=== PATIENT | male | born 1980 | race Caucasian/White ===

== ENCOUNTER 2020-12-11 16:55 | Day surgery (SDCO) | payer MEDICARE, OTHER ==
[~2020-12-11] VITALS: Ht 165.1 cm; Wt 148.1 kg
[2020-12-11 17:44] LABS: BASOPHIL 0.4 % (0-2); EOSINOPHIL 3.2 % (0-5); HCT 37.6 % (42.0-52.0); HGB 12.4 g/dl (13.2-18.0); LYMPHOCYTE 20.2 % (15-48); MCH 29.5 pg (25.0-31.0); MCV 89.3 fL (78.0-100.0); MONOCYTE 5.6 % (0-12); MPV 9.3 fL (6.0-9.5); NEUTROPHIL 70.1 % (41-80); NRBC 0; PLT 327 K/uL (150-400); RBC 4.21 M/uL (4.70-6.00); RDW 13.7 % (11.5-14.0)
[2020-12-11 17:50] LABS: ALBUMIN 3.1 g/dL (3.4-5.0); BILIRUBIN - TOTAL 0.3 mg/dL (0.2-1.0); CREATININE 0.72 mg/dL (0.67-1.17); GLOBULIN (CALCULATION) 4.9 g/dL; POTASSIUM 4.1 mmol/L (3.5-5.1)
[2020-12-11 23:17] LABS: MAGNESIUM 1.6 mg/dL (1.8-2.4); PHOSPHORUS 4.4 mg/dL (2.6-4.7)
[2020-12-11] MEDS ORDERED: PEPCID AC20 MG PO (23:48)
[2020-12-11] MEDS ORDERED: LASIX20 MG PO (23:49)
[2020-12-11] MEDS ORDERED: NORCO 5-325 TA1 EACH PO (23:49)
[2020-12-11] MEDS ORDERED: ZIPRASIDONE HCL20 MG PO (23:50)
[2020-12-11] MEDS ORDERED: FLOMAX0.4 MG PO (23:51)
[2020-12-11] MEDS ORDERED: PRILOSEC20 MG PO (23:51)
[2020-12-11] MEDS ORDERED: CARAFATE1 GM PO (23:52)
[2020-12-11] MEDS ORDERED: ATORVASTATIN CA10 MG PO (23:53)
[2020-12-11] MEDS ORDERED: VITAMIN D350 MC5 PO (23:53)
[2020-12-11] MEDS ORDERED: CYMBALTA 30MG C30 MG PO (23:54)
[2020-12-11] MEDS ORDERED: COREG12.5 MG PO (23:54)
[2020-12-11] MEDS ORDERED: FEOSOL325 MG PO (23:54)
[2020-12-11] MEDS ORDERED: PRINIVIL10 MG PO (23:57)
[2020-12-11] MEDS ORDERED: HYDROXYZINE HCL50 MG PO (23:57)
[2020-12-11] MEDS ORDERED: GLUCOPHAGE850 MG PO (23:58)
[2020-12-11] MEDS ORDERED: REMERON15 MG PO (23:58)
[2020-12-11] MEDS ORDERED: MELATONIN5 M2 PO (23:58)
[2020-12-12 06:09] LABS: BASOPHIL 0.4 % (0-2); EOSINOPHIL 3.1 % (0-5); HCT 37.6 % (42.0-52.0); HGB 12.2 g/dl (13.2-18.0); LYMPHOCYTE 23.6 % (15-48); MCH 28.9 pg (25.0-31.0); MCHC 32.4 g/dL (32.0-36.0); MCV 89.1 fL (78.0-100.0); MONOCYTE 6.2 % (0-12); MPV 9.1 fL (6.0-9.5); NEUTROPHIL 66.3 % (41-80); NRBC 0; PLT 317 K/uL (150-400); RBC 4.22 M/uL (4.70-6.00); WBC 10.7 K/uL (4.0-10.5)
[2020-12-12 07:06] LABS: CREATININE 0.76 mg/dL (0.67-1.17)
[2020-12-12 07:07] LABS: ALBUMIN 3.3 g/dL (3.4-5.0); BILIRUBIN - TOTAL 0.4 mg/dL (0.2-1.0); GLOBULIN (CALCULATION) 4.3 g/dL; POTASSIUM 4.1 mmol/L (3.5-5.1); TOTAL PROTEIN 7.6 g/dL (6.4-8.2)
[2020-12-12 07:13] LABS: CKMB 1.6 ng/mL (0.0-3.6)
--- NOTE | 2020-12-12 09:30 | NUR ---
RECIEVED PHONE CALL FROM SARAH RN CONTROL VALVE TECHNICIAN AT [facility]. PATIENT ATTENDS DAY CENTER MON-SAT FROM 7AM-2PM. STATES PATIENT LIVES INDEPENDENTLY AT AN APPARTMENT (NOT ASSISTED LIVING) AND HAS CARE ATTENDENTS IN THE EVENINGS. HE IS TRANSPORTED BY [facility], DOES NOT DRIVE, BUT STATES THAT SINCE HE IS IN [place] WE WILL NEED TO FIND HIM TRANSPORTATION BACK TO [facility] ON DISCHARGE. HIS MOTHER IS ALSO UNABLE TO TRANSPORT HIM. SARAH ALSO STATED THAT HE IS FREQUENTLY IN THE HOSPITAL FOR NON CARDIAC RELATED CHEST PAINS. SARAH PROVIDED HER PHONE NUMBER FOR ANY FURTHER QUESTIONS [phone].
[2020-12-12] MEDS ORDERED: PRILOSEC20 MG PO (09:44)
--- NOTE | 2020-12-12 11:19 | NUR ---
TC TO [facility] TRANSPORTATION WAS SENT TO [facility] [phone] WAS SENT TO [facility] [phone] THEN TRANSFERRED TO THE MEDICAID SECTION AT [phone]. WAS INFORMED BY LORENZO THAT PT IS ELIGIBLE FOR TRANSPORTATION AND WILL BE PICKED UP AROUND 3:00 P.M. THIS DATE CONFIRMATION # IS [id number]. GAVE SARA AT TRANSPORTATION THE TCU PHONE NUMBER TO CALL WHEN "[facility]" TRANSPORTATION ARRIVES TO CORE DRIER PATIENT. TC TO TCU TO ADVISE OF CORE DRIER, SPOKE WITH ISAIAH MENDEZ, ADVISED HER OF THE INFORMATION AND SHE WILL SEE THAT THE NURSE HAS THE MESSAGE.
--- NOTE | 2020-12-12 14:57 | NUR ---
[id number] PT DISCHARGE INSTRUCTIONS DISCUSSED WITH PT, HE VERBALIZED UNDERSTANDING. IV DC'D AT THIS TIME IV INTACT. PT TRANSPORTED VIA WHEELCHAIR BY TECH TO HIS TRANSPORTATION TO TAKE HIM HOME. PT TOLERATED WELL.
== END 2020-12-12 14:53 | disposition home or self-care (01) ==
LOC: FER 16:55 → FTCU 20:06
PROVIDERS: Emergency Medicine; Nurse Practitioner; ADMIT Internal Medicine
DX: R07.89 Other chest pain (principal); R00.0 Tachycardia, unspecified; I11.0 Hypertensive heart disease with heart failure; I50.9 Heart failure, unspecified; J44.9 Chronic obstructive pulmonary disease, unspecified; M41.9 Scoliosis, unspecified; E11.9 Type 2 diabetes mellitus without complications; F17.210 Nicotine dependence, cigarettes, uncomplicated; Z79.4 Long term (current) use of insulin; Z79.899 Other long term (current) drug therapy; Z88.8 Allergy status to other drugs, medicaments and biological substances; Z98.890 Other specified postprocedural states; Z20.822 Contact with and (suspected) exposure to COVID-19
CPT/HCPCS: 36415; 71045; 71275; 80053; 80061; 82553; 82962; 83735; 83880; 84100; 84484; 85025; 85379; 93005; 94010; G0378; J1885; J2270; J2405; J3475; J7040; Q9967; U0002